=== PATIENT | female | born 1955 | race Caucasian/White ===

== ENCOUNTER → 2018-11-07 | Outpatient (CLI) | payer BC ==
--- NOTE | 2018-11-07 14:33 | NM ---
EXAMINATION TYPE: NM bone SPECT and whole body bone scan DATE OF EXAM: 11/07/2018 COMPARISON: Outside x-ray dated 07/15/2018 HISTORY: Back pain TECHNIQUE: After the intravenous administration of 24.3 mCi Tc 99m MDP. Images acquired 3 hours pos t injection. SPECT views of the lumbar spine are submitted. FINDINGS: There is abnormal uptake at L5-S1 on the right. Faint uptake seen involving the mid and low er thoracic spine likely degenerative. Abnormal uptake involving the right knee likely post arthritic. Abnormal uptake involving the greater trochanter of the right hip may be secondary to trochanteric bu rsitis. Abnormal uptake involving the shoulders suggestive of post arthritic change. . SPECT imaging demonstr ates intense abnormal uptake in the region of the pars interarticularis of the L5 vertebral segment. IMPRESSION: 1. Intense abnormal uptake L5 level on the right at the approximate level of the pars interarticulari s on the right. This could be associated with a pars defect or severe facet arthropathy. Recommend MR I correlation.
== END ==
LOC: RADNMMAIN 10:09
PROVIDERS: ATTEND Physical Medicine & Rehabilitation
DX: M54.5 Low back pain (principal)
CPT/HCPCS: 78306; 78320; A9503